=== PATIENT | male | born 2000 | race Caucasian/White ===

== ENCOUNTER 2021-10-06 10:34 | Emergency (ER) | payer OTHER ==
[2021-10-06 10:54] VITALS: BP 112/58; PULSE 87; TEMP 99.4; BMI 33.0
[2021-10-06] MEDS ORDERED: ONDANSETRON 4 MG/2 ML VIAL IVPUSH ONE (11:13)
[2021-10-06] MEDS ORDERED: SODIUM CHLORIDE 1,000 ML IV STA (11:13)
[2021-10-06] MEDS ORDERED: ONDANSETRON 4 MG/2 ML VIAL ONE (11:25)
[2021-10-06 12:54] LABS: BASO % 0.3 % (0-2.0); EOS % 0.7 % (0-4.5); HEMATOCRIT 46.9 % (35.4-49); HEMOGLOBIN 16.3 GM/dL (11.7-16.9); LYMPH % 18.6 % (8-40); MCHC 34.7 g/dl (32.0-35.9); MEAN CELL VOLUME 86.3 fl (80-96); MEAN PLT VOLUME 8.4 fl (7.5-11.1); MONO % 5.2 % (3.8-10.2); NEUT % 75.2 % (42.8-82.8); PLATELET COUNT 271 10^3/uL (134-434); RBC 5.43 M/mm3 (4.00-5.60); RDW 13.6 % (11.9-15.9); WHITE BLOOD COUNT 7.3 K/mm3 (4.0-10.0)
[2021-10-06 13:24] LABS: ALBUMIN 4.4 g/dl (3.4-5.0); CALCIUM 9.4 mg/dL (8.5-10.1)
[2021-10-06 13:25] LABS: BLOOD UREA NITROGEN 9.2 mg/dL (7-18)
[2021-10-06 13:27] LABS: CREATININE 0.7 mg/dL (0.55-1.3)
[2021-10-06 13:29] LABS: BILIRUBIN,TOTAL 0.8 mg/dL (0.2-1); TOT PROT 8.8 g/dl (6.4-8.2)
[2021-10-06 16:12] LABS: PH,URINE 6.5 (5.0-8.0); URINE APPEARANCE CLEAR; URINE BILIRUBIN NEGATIVE (NEGATIVE); URINE COLOR YELLOW; URINE GLUCOSE (UA) NEGATIVE (NEGATIVE); URINE KETONE 3+ (NEGATIVE); URINE LEUK ESTERASE NEGATIVE (NEGATIVE); URINE NITRITE NEGATIVE (NEGATIVE); URINE PROTEIN NEGATIVE (NEGATIVE)
== END 2021-10-06 14:00 | disposition home or self-care (01) ==
LOC: JER 10:34
PROC: 3E033GC Introduction of Other Therapeutic Substance into Peripheral Vein, Percutaneous Approach (ICD-10-PCS; principal; 2021-10-06)
PROC: 3E0337Z Introduction of Electrolytic and Water Balance Substance into Peripheral Vein, Percutaneous Approach (ICD-10-PCS; 2021-10-06)
DX: R10.9 Unspecified abdominal pain (principal)
CPT/HCPCS: 36415; 74176-TC; 80053; 81003; 83690; 85025; 86850; 86900; 86901; 87086; 93005; 93010; 99285-25; C9803-CS; U0003; U0005